=== PATIENT | male | born 1940 | race Caucasian/White ===

== ENCOUNTER 2020-06-06 13:30 | Outpatient (REF) | payer MEDICARE, SELFPAY ==
[2020-06-06 15:02] LABS: Anion Gap 12 (12-20); Blood Urea Nitrogen 22 mg/dL (9-16); Calcium 9.3 mg/dL (8.4-10.2); Carbon Dioxide 28 mmol/L (22-29); Chloride 105 mmol/L (96-108); Estimated Glomerular Filt Rate 57; Glucose Random 94 mg/dL (60-115); Potassium 4.4 mmol/l (3.3-5.1); Sodium 141 mmol/L (135-145)
== END 2020-06-06 13:31 | disposition home or self-care (01) ==
LOC: HO.LAB 13:30
PROVIDERS: PCP Internal Medicine; Visit Provider Internal Medicine
DX: I10 Essential (primary) hypertension (principal)
CPT/HCPCS: 80048

== ENCOUNTER 2020-10-01 12:24 | Outpatient (REF) | payer MEDICARE, SELFPAY ==
[2020-10-01 12:48] LABS: MANUAL DIFF FLAG NO
[2020-10-01 13:16] LABS: Basophils Percent Auto 0.5 % (0-2); Eosinophils Absolute Auto 0.3 X10*3/uL (0.0-0.4); Eosinophils Percent Auto 4.1 % (0-4); Hematocrit 46.3 % (42-52); Hemoglobin 15.3 g/dl (14.0-18.0); Imm Gran Abs Auto 0.04 X10*3/uL (0.00-0.03); Imm Gran Pct Auto 0.5 % (0.0-0.4); Lymphocytes Absolute Auto 2.4 X10*3/uL (1.2-4.9); Lymphocytes Percent Auto 29.9 % (20-40); Mean Corpuscular Hemoglobin 30.2 pg (27.0-33.0); Mean Corpuscular Volume 91.3 fL (80-98); Mean Platelet Volume 9.4 fL (9.4-12.4); Monocytes Absolute Auto 0.8 X10*3/uL (0.1-1.2); Monocytes Percent Auto 10.1 % (2-11); Neutrophils Absolute Auto 4.5 X10*3/uL (2.0-8.3); Neutrophils Percent Auto 54.9 % (45-73); Platelet Count 276 X10*3/uL (160-400); Red Blood Count 5.07 X10*6/uL (4.60-5.80); Red Cell Distribution Width 13.2 % (11.0-16.0); White Blood Count 8.1 X10*3/uL (4.8-10.8)
[2020-10-01 13:18] LABS: Alanine Aminotransferase 23 U/L (0-40); Albumin Level 4.5 g/dL (3.5-5.0); Alkaline Phosphatase 76 U/L (39-117); Anion Gap 12 (12-20); Aspartate Amino Transferase 21 U/L (5-37); Bilirubin Total 0.7 mg/dL (0.0-1.0); Blood Urea Nitrogen 18 mg/dL (9-16); Calcium 9.2 mg/dL (8.4-10.2); Carbon Dioxide 29 mmol/L (22-29); Chloride 103 mmol/L (96-108); Cholesterol 169 mg/dL; Estimated Glomerular Filt Rate > 60; Glucose Fasting 104 mg/dL (60-99); HDL Cholesterol 46 mg/dL; LDL Cholesterol Calculated 105 mg/dl; Potassium 4.4 mmol/L (3.3-5.1); Sodium 140 mmol/L (135-145); Total Protein 7.2 g/dL (6.5-8.0); Triglycerides 92 mg/dL
== END 2020-10-01 12:25 | disposition home or self-care (01) ==
LOC: HO.LAB 12:24
PROVIDERS: PCP Internal Medicine; Visit Provider Internal Medicine
DX: I12.9 Hypertensive chronic kidney disease with stage 1 through stage 4 chronic kidney disease, or unspecified chronic kidney disease (principal); N18.9 Chronic kidney disease, unspecified; E78.00 Pure hypercholesterolemia, unspecified
CPT/HCPCS: 36415; 80053; 80061; 85025

== ENCOUNTER 2021-03-31 14:51 | Outpatient (REF) | payer MEDICARE, SELFPAY ==
[2021-03-31 15:59] LABS: Basophils Percent Auto 0.5 % (0-2); Eosinophils Absolute Auto 0.2 X10*3/uL (0.0-0.4); Eosinophils Percent Auto 2.7 % (0-4); Hematocrit 44.8 % (42-52); Hemoglobin 14.8 g/dl (14.0-18.0); Imm Gran Abs Auto 0.03 X10*3/uL (0.00-0.03); Imm Gran Pct Auto 0.4 % (0.0-0.4); Lymphocytes Absolute Auto 2.1 X10*3/uL (1.2-4.9); Lymphocytes Percent Auto 25.2 % (20-40); MANUAL DIFF FLAG NO; Mean Corpuscular Hemoglobin 29.7 pg (27.0-33.0); Mean Platelet Volume 9.5 fL (9.4-12.4); Monocytes Absolute Auto 0.9 X10*3/uL (0.1-1.2); Neutrophils Absolute Auto 5.2 X10*3/uL (2.0-8.3); Neutrophils Percent Auto 61.2 % (45-73); Platelet Count 320 X10*3/uL (160-400); Red Blood Count 4.98 X10*6/uL (4.60-5.80); Red Cell Distribution Width 12.5 % (11.0-16.0); White Blood Count 8.5 X10*3/uL (4.8-10.8)
[2021-03-31 16:12] LABS: Appearance Urine CLEAR; Color Urine YELLOW; Glucose Urine UA NEG (NEG); Leukocyte Esterase Urine NEG (NEG); Nitrite Urine NEG (NEG); Specific Gravity - Urine 1.015 (1.005-1.025); Urine Blood NEG (NEG); Urine Ketones NEG (NEG); Urine Protein TRACE MG/DL (NEG-TRACE)
[2021-03-31 16:22] LABS: Alanine Aminotransferase 27 U/L (0-40); Albumin Level 4.4 g/dL (3.5-5.0); Alkaline Phosphatase 84 U/L (39-117); Anion Gap 15 (12-20); Aspartate Amino Transferase 24 U/L (5-37); Bilirubin Total 0.5 mg/dL (0.0-1.0); Blood Urea Nitrogen 17 mg/dL (9-16); Calcium 9.8 mg/dL (8.4-10.2); Carbon Dioxide 27 mmol/L (22-29); Chloride 104 mmol/L (96-108); Cholesterol 162 mg/dL; Estimated Glomerular Filt Rate > 60; Glucose Random 105 mg/dL (60-115); HDL Cholesterol 45 mg/dL; LDL Cholesterol Calculated 103 mg/dl; Potassium 4.6 mmol/L (3.3-5.1); Sodium 141 mmol/L (135-145); Total Protein 7.2 g/dL (6.5-8.0); Triglycerides 73 mg/dL
[2021-03-31 16:46] LABS: Prostate Specific Antigen 1.77 ng/mL (<0.05-4.0)
== END 2021-03-31 14:52 | disposition home or self-care (01) ==
LOC: HO.LAB 14:51
PROVIDERS: PCP Internal Medicine; Visit Provider Internal Medicine
DX: Z00.00 Encounter for general adult medical examination without abnormal findings (principal); Z12.5 Encounter for screening for malignant neoplasm of prostate; E78.00 Pure hypercholesterolemia, unspecified; N40.0 Benign prostatic hyperplasia without lower urinary tract symptoms; Z86.010 Personal history of colon polyps
CPT/HCPCS: 36415; 80053; 80061; 81003; 84153; 85025

== ENCOUNTER 2021-09-26 14:05 | Outpatient (REF) | payer MEDICARE, SELFPAY ==
[2021-09-26 14:20] LABS: MANUAL DIFF FLAG NO
[2021-09-26 15:01] LABS: Basophils Percent Auto 0.4 % (0-2); Eosinophils Absolute Auto 0.2 X10*3/uL (0.0-0.4); Eosinophils Percent Auto 2.1 % (0-4); Hematocrit 46.5 % (42.0-52.0); Hemoglobin 15.5 g/dl (14.0-18.0); Imm Gran Abs Auto 0.03 X10*3/uL (0.00-0.03); Imm Gran Pct Auto 0.3 % (0.0-0.4); Lymphocytes Absolute Auto 2.4 X10*3/uL (1.2-4.9); Lymphocytes Percent Auto 26.3 % (20-40); Mean Corpuscular HGB Conc 33.3 g/dl (31.0-36.0); Mean Corpuscular Hemoglobin 29.8 pg (27.0-33.0); Mean Corpuscular Volume 89.4 fL (80.0-98.0); Mean Platelet Volume 9.9 fL (9.4-12.4); Monocytes Absolute Auto 0.9 X10*3/uL (0.1-1.2); Monocytes Percent Auto 9.4 % (2-11); Neutrophils Absolute Auto 5.6 x10*3/uL (2.0-8.3); Neutrophils Percent Auto 61.5 % (45-73); Platelet Count 287 X10*3/uL (160-400); White Blood Count 9.1 X10*3/uL (4.8-10.8)
[2021-09-26 15:07] LABS: Appearance Urine CLEAR; Color Urine YELLOW; Glucose Urine UA NEG (NEG); Leukocyte Esterase Urine NEG (NEG); Nitrite Urine NEG (NEG); PH 6.5 (5.0-8.0); Urine Blood NEG (NEG); Urine Ketones NEG (NEG); Urine Protein NEG (NEG-TRACE)
[2021-09-26 15:21] LABS: Alanine Aminotransferase 24 U/L (0-40); Albumin Level 4.4 g/dL (3.5-5.0); Alkaline Phosphatase 78 U/L (39-117); Anion Gap 13 (12-20); Aspartate Amino Transferase 22 U/L (5-37); Bilirubin Total 0.8 mg/dL (0.0-1.0); Blood Urea Nitrogen 25 mg/dL (9-16); Calcium 9.7 mg/dL (8.4-10.2); Carbon Dioxide 26 mmol/L (22-29); Chloride 106 mmol/L (96-108); Cholesterol 169 mg/dL; Estimated Glomerular Filt Rate 59; Glucose Fasting 109 mg/dL (60-99); HDL Cholesterol 43 mg/dL; LDL Cholesterol Calculated 110 mg/dl; Potassium 4.2 mmol/L (3.3-5.1); Sodium 141 mmol/L (135-145); Total Protein 7.2 g/dL (6.5-8.0); Triglycerides 80 mg/dL
[2021-09-26 15:41] LABS: Prostate Specific Antigen 2.14 ng/mL (<0.05-4.0)
== END 2021-09-26 14:06 | disposition home or self-care (01) ==
LOC: HO.LAB 14:05
PROVIDERS: PCP Internal Medicine; Visit Provider Internal Medicine
DX: I10 Essential (primary) hypertension (principal); E78.00 Pure hypercholesterolemia, unspecified; N40.0 Benign prostatic hyperplasia without lower urinary tract symptoms; Z12.5 Encounter for screening for malignant neoplasm of prostate
CPT/HCPCS: 36415; 80053; 80061; 81003; 84153; 85025

== ENCOUNTER → 2021-11-17 08:00 | Outpatient (REF) | payer MEDICARE, SELFPAY ==
--- NOTE | 2021-11-17 08:09 | CA_ITS ---
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 The calculated ejection fraction is 68% by biplane method. - There is moderate septal asymmetric hypertrophy. - Moderately increased right ventricular cavity size. - There is mild calcification of the aortic valve. - There is mild anterior mitral leaflet thickening. Findings Left Ventricle Normal left ventricular cavity size. The left ventricular systolic function is normal. The calculated ejection fraction is 68% by biplane method. There is no evidence of regional wall motion abnormalities. Diastolic function is normal for age. There is moderate septal asymmetric hypertrophy. Right Ventricle Moderately increased right ventricular cavity size. There is normal right ventricular systolic function. Atria Both atria are normal in size. Aortic Valve There is mild calcification of the aortic valve. There is no aortic valve stenosis. There is no aortic valve regurgitation. Mitral Valve There is mild anterior mitral leaflet thickening. There is trace mitral valve regurgitation. There is no mitral valve stenosis. Pulmonic Valve The pulmonic valve is likely normal. Tricuspid Valve Normal tricuspid valve structure. There is no tricuspid valve regurgitation. The pulmonary artery systolic pressure is normal. Great Vessels The asc aorta is normal in size. Venous The inferior vena cava is normal in size and collapses greater than 50% with inspiration. Pericardium/Pleural There is no evidence of pericardial effusion. Prior Study Comparison No prior study available for comparison. Measurements 2D Linear Measurements IVSd: 1.29 0.6-0.9/0.6-1.0 cm LVIDd: 5.03 3.9-5.3/4.2-5.9 cm LVIDd Index: 2.38 2.4-3.2/2.2-3.1 cm/m2 LVIDs: 3.07 2.0-3.6 cm LVPWd: 0.90 0.7-1.1 cm LA Diam: 4.10 2.7-3.8/3.0-4.0 cm LAIDs Index: 1.94 1.5-2.3 cm/m2 LV Mass: 259.07 67-162/88-224 g LV Mass Index: 122.78 43-95/49-115 g/m2 LVOT Diam: 2.60 3.0+(-)1.3 cm 2D Systolic Function EF 4C: 74.20 >55% EF 2C: 54.30 >55% EF BiP: 67.50 >55% Mitral Valve MV Pk E: 0.60 MV PK A: 0.63 MV Decel Time: 322.00 E/A: 1.00 E'Lateral: 8.41 E'Medial: 5.43 E/E' Med: 11.10 E/E' Lat: 7.10 PHT: 94.00 MVA PHT: 2.34 Decel [place]: 1.87 Aortic Valve AoV Pk Santhosh: 1.16 AoV Mn Santhosh: 0.77 AoV VTI: 0.22 AoV Pk Grad: 5.00 Aov Mn Grad: 3.00 BAKARI Cont.VTI: 4.25 LVOT LVOT Pk Santhosh: 0.98 LVOT Mn Santhosh: 0.62 LVOT VTI: 0.17 LVOT Pk Grad: 4.00 LVOT Mn Grad: 2.00 LVOT Diam: 2.60 LVOT Area: 5.31 Diastolic Function MV Pk E: 0.60 MV Pk A: 0.63 E/A: 1.00 E'Medial: 5.43 E/E' Med: 11.10 E' Laterial: 8.41 E/E' Lat: 7.10 Right Ventricle TAPSE (mm): 18.80 TVS' Santhosh: 15.90 Tricuspid Valve TR Pk Santhosh: 2.46 TR Pk Grad: 24.00 RA Press: 3.00 Great Vessels Aorta Sinus of Valsalva: 3.26 2.0-3.5 cm Ao Asc: 3.30 2.1-3.4 cm Pulmonary Valve PV Pk Santhosh: 1.34 Peak PV Grad: 7.00 Updated in Other Vendor System with Status of Final Alphonse Driver MD electronically signed on 11/17/2021 12:09:52 PM with status of Final
== END ==
LOC: HO.CARD 08:00
PROVIDERS: PCP Internal Medicine; Visit Provider Internal Medicine
DX: I49.3 Ventricular premature depolarization (principal)
CPT/HCPCS: 93306

== ENCOUNTER 2022-01-16 11:27 | Outpatient (REF) | payer MEDICARE, SELFPAY ==
[2022-01-16 12:41] LABS: Anion Gap 13 (12-20); Blood Urea Nitrogen 17 mg/dL (9-16); Calcium 9.3 mg/dL (8.4-10.2); Carbon Dioxide 28 mmol/L (22-29); Chloride 102 mmol/L (96-108); Estimated Glomerular Filt Rate 54; Glucose Random 117 mg/dL (60-115); Sodium 138 mmol/L (135-145)
== END 2022-01-16 11:28 | disposition home or self-care (01) ==
LOC: HO.LAB 11:27
PROVIDERS: PCP Internal Medicine; Visit Provider Internal Medicine
DX: I10 Essential (primary) hypertension (principal); N18.9 Chronic kidney disease, unspecified
CPT/HCPCS: 36415; 80048

== ENCOUNTER 2022-03-11 14:12 | Outpatient (REF) | payer MEDICARE, SELFPAY ==
[2022-03-11 15:28] LABS: Anion Gap 15 (12-20); Blood Urea Nitrogen 16 mg/dL (9-16); Calcium 9.3 mg/dL (8.4-10.2); Carbon Dioxide 28 mmol/L (22-29); Chloride 102 mmol/L (96-108); Estimated Glomerular Filt Rate 55; Glucose Random 101 mg/dL (60-115); Potassium 4.4 mmol/L (3.3-5.1); Sodium 141 mmol/L (135-145)
[2022-03-11 15:39] LABS: Estimated Average Glucose 108 mg/dL; Hemoglobin A1c % 5.4 %
== END 2022-03-11 14:13 | disposition home or self-care (01) ==
LOC: HO.LAB 14:12
PROVIDERS: PCP Internal Medicine; Visit Provider Internal Medicine
DX: I12.9 Hypertensive chronic kidney disease with stage 1 through stage 4 chronic kidney disease, or unspecified chronic kidney disease (principal); N18.9 Chronic kidney disease, unspecified; R73.03 Prediabetes
CPT/HCPCS: 36415; 80048; 83036

== ENCOUNTER → 2022-04-07 11:28 | Outpatient (BNVA) | payer MEDICARE, SELFPAY | PROVIDERS: PCP Internal Medicine; Visit Provider Psychiatry & Neurology Psychiatry | DX: F32.4 Major depressive disorder, single episode, in partial remission (principal) | CPT/HCPCS: 90833; 99212 ==

== ENCOUNTER → 2022-07-14 13:06 | Outpatient (BNVA) | payer MEDICARE, SELFPAY | PROVIDERS: PCP Internal Medicine; Visit Provider Psychiatry & Neurology Psychiatry | DX: F41.0 Panic disorder [episodic paroxysmal anxiety] (principal); F41.1 Generalized anxiety disorder; F32.4 Major depressive disorder, single episode, in partial remission | CPT/HCPCS: 99212 ==

== ENCOUNTER 2022-09-09 12:04 | Outpatient (REF) | payer MEDICARE, SELFPAY ==
[2022-09-09 12:34] LABS: MANUAL DIFF FLAG NO
[2022-09-09 14:10] LABS: Basophils Percent Auto 0.5 % (0-2); Eosinophils Absolute Auto 0.2 X10*3/uL (0.0-0.4); Eosinophils Percent Auto 2.8 % (0-4); Hematocrit 45.1 % (42.0-52.0); Hemoglobin 15.2 g/dl (14.0-18.0); Imm Gran Abs Auto 0.03 X10*3/uL (0.00-0.03); Imm Gran Pct Auto 0.4 % (0.0-0.4); Lymphocytes Percent Auto 25.8 % (20-40); Mean Corpuscular HGB Conc 33.7 g/dl (31.0-36.0); Mean Corpuscular Hemoglobin 29.7 pg (27.0-33.0); Mean Corpuscular Volume 88.3 fL (80.0-98.0); Mean Platelet Volume 9.7 fL (9.4-12.4); Monocytes Absolute Auto 0.8 X10*3/uL (0.1-1.2); Monocytes Percent Auto 9.9 % (2-11); Neutrophils Absolute Auto 4.8 x10*3/uL (2.0-8.3); Neutrophils Percent Auto 60.6 % (45-73); Platelet Count 299 X10*3/uL (160-400); Red Blood Count 5.11 X10*6/uL (4.60-5.80); Red Cell Distribution Width 12.7 % (11.0-16.0); White Blood Count 7.9 X10*3/uL (4.8-10.8)
[2022-09-09 14:13] LABS: Appearance Urine Cloudy; Color Urine Yellow; Glucose Urine UA Negative (Negative); Leukocyte Esterase Urine Negative (Negative); Nitrite Urine Negative (Negative); PH 7.5 (5.0-9.0); Urine Blood Negative (Negative); Urine Ketones Negative (Negative); Urine Protein Negative (Neg-Trace)
[2022-09-09 14:45] LABS: Alanine Aminotransferase 17 U/L (0-40); Albumin Level 4.1 g/dL (3.5-5.0); Alkaline Phosphatase 75 U/L (39-117); Anion Gap 14 (12-20); Aspartate Amino Transferase 19 U/L (5-37); Bilirubin Total 0.7 mg/dL (0.0-1.0); Blood Urea Nitrogen 17 mg/dL (9-16); Calcium 9.2 mg/dL (8.4-10.2); Carbon Dioxide 28 mmol/L (22-29); Chloride 106 mmol/L (96-108); Cholesterol 162 mg/dL; Estimated Glomerular Filt Rate > 60; Glucose Fasting 95 mg/dL (60-99); HDL Cholesterol 40 mg/dL; LDL Cholesterol Calculated 109 mg/dl; Potassium 4.5 mmol/L (3.3-5.1); Sodium 143 mmol/L (135-145); Total Protein 6.7 g/dL (6.5-8.0); Triglycerides 69 mg/dL
[2022-09-09 15:02] LABS: Prostate Specific Antigen 1.67 ng/mL (<0.05-4.0)
== END 2022-09-09 12:05 | disposition home or self-care (01) ==
LOC: HO.LAB 12:04
PROVIDERS: PCP Internal Medicine; Visit Provider Internal Medicine
DX: I10 Essential (primary) hypertension (principal); E78.00 Pure hypercholesterolemia, unspecified; N40.0 Benign prostatic hyperplasia without lower urinary tract symptoms; Z12.5 Encounter for screening for malignant neoplasm of prostate
CPT/HCPCS: 36415; 80053; 80061; 81003; 84153; 85025

== ENCOUNTER → 2022-10-13 12:59 | Outpatient (BNVA) | payer MEDICARE, SELFPAY | PROVIDERS: PCP Internal Medicine; Visit Provider Psychiatry & Neurology Psychiatry | DX: F41.1 Generalized anxiety disorder (principal); F41.0 Panic disorder [episodic paroxysmal anxiety] | CPT/HCPCS: 90833; 99212 ==

== ENCOUNTER 2023-02-09 13:55 | Outpatient (AMB) | payer MEDICARE, SELFPAY ==
--- NOTE | 2023-02-09 13:34 | A.OFFPSYCH_ITS ---
Intake Intake Visit Reasons: Depression Medication List - Last Reconciled 02/09/23 by Shalom Sotelo MD aspirin (Adult Aspirin Regimen) 81 mg PO DAILY atorvastatin 10 mg PO DAILY clonazepam 0.5 mg PO BID PRN 30 days lisinopril 5 mg PO DAILY mirtazapine 30 mg PO BEDTIME HPI- Psychiatric Chief Complaint: Depression HPI Narrative: Pt seen in f/u mood has been ok grandson will be going to [employer] medically stable some anxiety in the am tends to be a worrier does feel overwhelmed at times has been on low dose klonapin mirtazapine with generally good effect. He tends to feel quite responsible for his family some of whom have significant addiction issues but generally things are improving. The patient can get somewhat exhausted taking his grandson to school and back and also be dealing with practices . Id in general however he can feel a sense of peace care on relax able to get sleep able to enjoy things. PHQ-9 unremarkable . States no new medical concerns Past Psychiatric History: Patient has a history of panic disorder and depression was on citalopram in the past originally was taking 3 mg a day of clonazepam for panic disorder and agoraphobia he did see Dr. Bailey many years ago in [place] he was also on Wellbutrin in the past chronic worries re his son cuong Mental Status Exam Mental Status Exam Narrative: Mental Status Exam Narrative: Appearance casually dressed Behavior: Cooperative psychomotor: Within normal limits Speech: Clear Thought proccess goal directed logical Thought content: generally feeling good about things Mood: some anxiety Affect: Full affect appropriate SI:denies HI:denies VH/AH:none Delusions:none Insight/judgment:good Memory/cog: intact Assessment and Plan Assessment & Plan (1) Generalized anxiety disorder: Status: Acute Code(s): F41.1 - Generalized anxiety disorder (2) Panic disorder [episodic paroxysmal anxiety]: Status: Acute Code(s): F41.0 - Panic disorder [episodic paroxysmal anxiety] (3) Major depression in partial remission: Status: Acute Code(s): F32.4 - Major depressive disorder, single episode, in partial remission Plan pt has generally been stable has been under stress worried re family mood somewhat anxious no new mwdical concerns Needs help in setting some boundaries family members some of whom are dealing with addiction patient tends to feel hyper spots pill 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 He feels between a rock and hard place at times trying to balance issues related to family safety versus enabling Medications: Refilled mirtazapine 30 mg PO BEDTIME 30 tabs 2RF Counseling and coordination of Care Pt. Self Management counseling: Mindfulness and Sleep hygiene Details-Self Mgmt counseling: issues related to children and sub abuse issues of spiritually for support Medication management counseling: Effectiveness Diagnosis and Prognosis Counseling: Impact of diagnosis on life functions and Adequacy of current interventions Details: I spent [36] minutes reviewing the record, seeing the patient and documenting in the medical record. Counseling provided to the patient/caregiver as outlined below. Addressed patient/caregiver concerns regarding current medication regime including effective adherence. Addressed patient/caregiver concerns regarding diagnosis and prognosis including accuracy of diagnosis, prognosis over time, impact of diagnosis. Addressed patient/caregiver concerns regarding impact of recent stressors. 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 Patient is Ep[employer] Substance History: na Trauma History: na Coding Level of Care Code Est Pt Level 3 (69025) Therapy 30m w/E&M (74633) Diagnoses Generalized anxiety disorder F41.1 Panic disorder [episodic paroxysmal anxiety] F41.0 Major depression in partial remission F32.4
== END 2023-02-09 14:14 | disposition home or self-care (01) ==
LOC: HO.HOP 13:55
PROVIDERS: PCP Internal Medicine; Visit Provider Psychiatry & Neurology Psychiatry
DX: F41.1 Generalized anxiety disorder (principal); F41.0 Panic disorder [episodic paroxysmal anxiety]; F32.4 Major depressive disorder, single episode, in partial remission
CPT/HCPCS: 90833; 99213

== ENCOUNTER → 2023-02-09 13:55 | Outpatient (BNVA) | payer MEDICARE, SELFPAY | PROVIDERS: PCP Internal Medicine; Visit Provider Psychiatry & Neurology Psychiatry | DX: F41.1 Generalized anxiety disorder (principal); F41.0 Panic disorder [episodic paroxysmal anxiety]; F32.4 Major depressive disorder, single episode, in partial remission | CPT/HCPCS: 90833; 99212 ==

== ENCOUNTER 2023-05-18 11:52 | Outpatient (AMB) | payer MEDICARE, SELFPAY ==
--- NOTE | 2023-05-18 12:28 | MHC.OFFVISPS ---
Intake Intake Visit Reasons: depression Medication List - Last Reconciled 05/20/23 by Shalom Sotelo MD aspirin (Adult Aspirin Regimen) 81 mg PO DAILY atorvastatin 10 mg PO DAILY clonazepam 0.5 mg PO BID PRN 30 days doxepin 3 - 6 mg (1 - 2 x 3 mg) PO BEDTIME PRN lisinopril 5 mg PO DAILY mirtazapine 30 mg PO BEDTIME HPI- Psychiatric Chief Complaint: depression HPI Narrative: Patient has been having a lot of concerns regarding his son managing substance abuse. 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 With seems more anxious preoccupied has difficulty falling asleep The patient's grandson has moved back in with his mother the patient feels good about this generally less pressuredc Past Psychiatric History: Patient has a history of panic disorder and depression was on citalopram in the past originally was taking 3 mg a day of clonazepam for panic disorder and agoraphobia he did see Dr. Leonard-mckenna many years ago in [place] he was also on Wellbutrin in the past chronic worries re his son grandson Mental Status Exam Mental Status Exam Narrative: Mental Status Exam Narrative: Appearance casually dressed Behavior: Cooperative psychomotor: Within normal limits Speech: Clear Thought proccess goal directed logical Thought content: generally feeling good about things Mood: some anxiety Affect: Full affect appropriate SI:denies HI:denies VH/AH:none Delusions:none Insight/judgment:good Memory/cog: intact Assessment and Plan Assessment & Plan (1) Generalized anxiety disorder: Status: Acute Code(s): F41.1 - Generalized anxiety disorder (2) Panic disorder [episodic paroxysmal anxiety]: Status: Acute Code(s): F41.0 - Panic disorder [episodic paroxysmal anxiety] (3) Major depression in partial remission: Status: Acute Code(s): F32.4 - Major depressive disorder, single episode, in partial remission Plan chronic stress and anxiety with the landlord/management lower mirtazapine 7.5 mg hs may be to stim at 15 mg try doxepin 3 mg hs prn patient tends to obsess about his family Medications: New doxepin 3 - 6 mg (1 - 2 x 3 mg) PO BEDTIME PRN 60 tabs 1RF sleep doxepin 3 mg PO BEDTIME PRN 30 tabs 1RF sleep Orders: Orders ECG 12 lead EKG 05/18/23 I10 - Essential (primary) hypertension Counseling and coordination of Care Details-Self Mgmt counseling: Issues related chronic stress anxiety issues related to insomnia reviewed sleep hygiene habits again doxepin 3 mg risks benefits alternatives reviewed patient call if problematic continue mirtazapine low-dose clonazepam Details: I spent [] minutes reviewing the record, seeing the patient and documenting in the medical record. Counseling provided to the patient/caregiver as outlined below. Addressed patient/caregiver concerns regarding current medication regime including effective adherence. Addressed patient/caregiver concerns regarding diagnosis and prognosis including accuracy of diagnosis, prognosis over time, impact of diagnosis. Addressed patient/caregiver concerns regarding impact of recent stressors. 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 Patient is [place] Substance History: na Trauma History: na Coding Level of Care Code Est Pt Level 3 (07419) Therapy 30m w/E&M (02865) Diagnoses Generalized anxiety disorder F41.1 Panic disorder [episodic paroxysmal anxiety] F41.0 Major depression in partial remission F32.4
== END 2023-05-18 12:45 | disposition home or self-care (01) ==
LOC: HO.HOP 11:52
PROVIDERS: PCP Internal Medicine; Visit Provider Psychiatry & Neurology Psychiatry
DX: F41.1 Generalized anxiety disorder (principal); F41.0 Panic disorder [episodic paroxysmal anxiety]; F32.4 Major depressive disorder, single episode, in partial remission
CPT/HCPCS: 90833; 99213

== ENCOUNTER → 2023-05-18 11:52 | Outpatient (REF) | payer MEDICARE, SELFPAY ==
--- NOTE | 2023-05-18 12:53 | ECG_ITS ---
Test Reason : HTN Blood Pressure : / mmHG Vent. Rate : 083 BPM Atrial Rate : 083 BPM P-R Int : 144 ms QRS Dur : 092 ms QT Int : 370 ms P-R-T Axes : 065 -14 030 degrees QTc Int : 434 ms Normal sinus rhythm with occasional Premature atrial complexes Nonspecific T wave abnormality Inferior leads Abnormal ECG When compared with ECG of 21-SEP-2005 16:15, Nonspecific T wave abnormality is new Premature atrial complexes are new Referred By: Shalom Sotelo Electronically Signed By:KENDAL MULLIGAN MD
== END ==
LOC: HO.CARD 11:52
PROVIDERS: PCP Internal Medicine; Visit Provider Psychiatry & Neurology Psychiatry
DX: I10 Essential (primary) hypertension (principal); F41.1 Generalized anxiety disorder; F41.0 Panic disorder [episodic paroxysmal anxiety]; F32.4 Major depressive disorder, single episode, in partial remission
CPT/HCPCS: 90833; 93005; 99212

== ENCOUNTER 2023-08-19 15:34 | Outpatient (AMB) | payer MEDICARE, SELFPAY ==
--- NOTE | 2023-08-19 14:37 | A.OFFPSYCH_ITS ---
Intake Intake Visit Reasons: depression HPI- Psychiatric Chief Complaint: depression HPI Narrative: Patient seen psychiatric follow-up. Patient's mood has generally been stable he is feeling better since his grandson moved out and they are less stressors on his time having no longer to shadow him a few times a day. He continues to provide a base for 2 of his children . Patient continues on mirtazapine doxepin generally good effect may get up 1 time a night mood generally stable anxiety generally control. Dealing with chronic issues related to addiction in the family Past Psychiatric History: Patient has a history of panic disorder and depression was on citalopram in the past originally was taking 3 mg a day of clonazepam for panic disorder and agoraphobia he did see Dr. Bailey many years ago in [place] he was also on Wellbutrin in the past chronic worries re his son grandson Mental Status Exam Mental Status Exam Narrative: Mental Status Exam Narrative: Appearance casually dressed Behavior: Cooperative psychomotor: Within normal limits Speech: Clear Thought proccess goal directed logical Thought content: generally okay about how things are going chronic concerns regarding family members Mood: some anxiety Affect: Full affect appropriate SI:denies HI:denies VH/AH:none Delusions:none Insight/judgment:good Memory/cog: intact Assessment and Plan Assessment & Plan (1) Generalized anxiety disorder: Status: Acute Code(s): F41.1 - Generalized anxiety disorder (2) Panic disorder [episodic paroxysmal anxiety]: Status: Acute Code(s): F41.0 - Panic disorder [episodic paroxysmal anxiety] Plan pt generally stable feels well with doxepin hs for sleep remeron helpful have tried to taper down clonazepam further over time Patient does have relaxation skills Medications: Refilled mirtazapine 30 mg PO BEDTIME 30 tabs 3RF clonazepam 0.5 mg PO BID PRN 60 tabs 2RF anxiety 30 days doxepin 3 mg PO BEDTIME PRN 30 tabs 2RF sleep Counseling and coordination of Care Medication management counseling: Effectiveness and Side effects Diagnosis and Prognosis Counseling: Adequacy of current interventions Details: I spent [30] minutes reviewing the record, seeing the patient and documenting in the medical record. Counseling provided to the patient/caregiver as outlined below. Addressed patient/caregiver concerns regarding current medication regime including effective adherence. Addressed patient/caregiver concerns regarding diagnosis and prognosis including accuracy of diagnosis, prognosis over time, impact of diagnosis. Addressed patient/caregiver concerns regarding impact of recent stressors. 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 Patient is Moravian Substance History: na Trauma History: na Coding Level of Care Code Est Pt Level 4 (07283) Diagnoses Generalized anxiety disorder F41.1 Panic disorder [episodic paroxysmal anxiety] F41.0
== END 2023-08-19 15:36 | disposition home or self-care (01) ==
LOC: HO.HOP 15:34
PROVIDERS: PCP Internal Medicine; Visit Provider Psychiatry & Neurology Psychiatry
DX: F41.1 Generalized anxiety disorder (principal); F41.0 Panic disorder [episodic paroxysmal anxiety]
CPT/HCPCS: 99214

== ENCOUNTER → 2023-08-19 15:34 | Outpatient (BNVA) | payer MEDICARE, SELFPAY | PROVIDERS: PCP Internal Medicine; Visit Provider Psychiatry & Neurology Psychiatry | DX: F41.1 Generalized anxiety disorder (principal); F41.0 Panic disorder [episodic paroxysmal anxiety] | CPT/HCPCS: 99212 ==

== ENCOUNTER 2023-12-09 09:04 | Outpatient (REF) | payer MEDICARE, SELFPAY ==
[2023-12-09 09:33] LABS: MANUAL DIFF FLAG NO
[2023-12-09 10:18] LABS: Basophils Percent Auto 0.4 % (0-2); Eosinophils Absolute Auto 0.2 X10*3/uL (0.0-0.4); Eosinophils Percent Auto 2.4 % (0-4); Hematocrit 45.8 % (42.0-52.0); Hemoglobin 15.5 g/dl (14.0-18.0); Imm Gran Abs Auto 0.03 X10*3/uL (0.00-0.03); Imm Gran Pct Auto 0.4 % (0.0-0.4); Lymphocytes Absolute Auto 1.9 X10*3/uL (1.2-4.9); Lymphocytes Percent Auto 24.4 % (20-40); Mean Corpuscular HGB Conc 33.8 g/dl (31.0-36.0); Mean Corpuscular Hemoglobin 30.5 pg (27.0-33.0); Mean Platelet Volume 9.7 fL (9.4-12.4); Monocytes Absolute Auto 0.8 X10*3/uL (0.1-1.2); Monocytes Percent Auto 9.9 % (2-11); Neutrophils Percent Auto 62.5 % (45-73); Platelet Count 269 X10*3/uL (160-400); Red Blood Count 5.09 X10*6/uL (4.60-5.80); Red Cell Distribution Width 12.9 % (11.0-16.0); White Blood Count 7.9 X10*3/uL (4.8-10.8)
[2023-12-09 10:58] LABS: Alanine Aminotransferase 20 U/L (0-40); Albumin Level 4.3 g/dL (3.5-5.0); Alkaline Phosphatase 78 U/L (39-117); Anion Gap 15 (12-20); Aspartate Amino Transferase 20 U/L (5-37); Bilirubin Total 0.3 mg/dL (0.0-1.0); Blood Urea Nitrogen 18 mg/dL (9-16); Calcium 9.4 mg/dL (8.4-10.2); Carbon Dioxide 28 mmol/L (22-29); Chloride 104 mmol/L (96-108); Cholesterol 160 mg/dL (<200); Estimated Glomerular Filt Rate > 60; Glucose Fasting 119 mg/dL (60-99); HDL Cholesterol 45 mg/dL (>40); LDL Cholesterol Calculated 104 mg/dL (<100); Potassium 4.3 mmol/L (3.3-5.1); Sodium 143 mmol/L (135-145); Total Protein 7.1 g/dL (6.5-8.0); Triglycerides 59 mg/dL (<150)
[2023-12-09 11:04] LABS: Prostate Specific Antigen 1.75 ng/mL (<0.05-4.0)
== END 2023-12-09 09:05 | disposition home or self-care (01) ==
LOC: HO.LAB 09:04
PROVIDERS: PCP Internal Medicine; Visit Provider Internal Medicine
DX: I10 Essential (primary) hypertension (principal); E78.00 Pure hypercholesterolemia, unspecified; Z12.5 Encounter for screening for malignant neoplasm of prostate
CPT/HCPCS: 36415; 80053; 80061; 84153; 85025

== ENCOUNTER 2023-12-13 15:52 | Outpatient (AMB) | payer MEDICARE, SELFPAY ==
--- NOTE | 2023-12-13 16:13 | A.OFFPSYCH_ITS ---
Intake Intake Visit Reasons: depression Medication List - Last Reconciled 12/13/23 by Shalom Sotelo MD aspirin (Adult Aspirin Regimen) 81 mg PO DAILY atorvastatin 10 mg PO DAILY clonazepam 0.5 mg PO BID PRN 30 days doxepin 3 mg PO BEDTIME PRN lisinopril 5 mg PO DAILY mirtazapine 30 mg PO BEDTIME HPI- Psychiatric Chief Complaint: depression HPI Narrative: Pt seen in f/u mood has been somewhat anxious have urged pt to see therapist focused on sub issues he and his have difficult time setting limits on their son . Some degree of chronic anxiety and intermittent distress regarding family members who have substance abuse and appropriate level of contact and intervention. Patient has strongly advised to see a therapist regarding this issue despite his own therapy background indoor Al-Anon or naron meetings. Patient generally feels he has a good quality of life not overly depressed or anxious generally Past Psychiatric History: Patient has a history of panic disorder and depression was on citalopram in the past originally was taking 3 mg a day of clonazepam for panic disorder and agoraphobia he did see Dr. Bailey many years ago in [place] he was also on Wellbutrin in the past chronic worries re his son cuong Mental Status Exam Mental Status Exam Narrative: Mental Status Exam Narrative: Appearance casually dressed Behavior: Cooperative psychomotor: Within normal limits Speech: Clear Thought proccess goal directed logical Thought content: generally ok but overwhelmed with issues with son related to addiction Mood: some anxiety Affect: Full affect appropriate SI:denies HI:denies VH/AH:none Delusions:none Insight/judgment:good Memory/cog: intact Assessment and Plan Assessment & Plan (1) Generalized anxiety disorder: Status: Acute Code(s): F41.1 - Generalized anxiety disorder (2) Panic disorder [episodic paroxysmal anxiety]: Status: Acute Code(s): F41.0 - Panic disorder [episodic paroxysmal anxiety] (3) Major depression in partial remission: Status: Acute Code(s): F32.4 - Major depressive disorder, single episode, in partial remission (4) Family conflict: Status: Acute Code(s): Z63.8 - Other specified problems related to primary support group Plan pt has been doing ok generally has difficult time with son witrh addiction uses prayer has been resistant to recommendations for group or individual or couples counseling regarding this specific issue or others support groups which I have strongly urged Counseling and coordination of Care Pt. Self Management counseling: Other self-help group and Parenting skills Details-Self Mgmt counseling: Structural issues related to dealing with a son and grandchild with major addiction issues and setting boundaries Details-Med Mgmt counseling: Continue mirtazapine Klonopin has been lowered over time no evidence of abuse or tolerance no cognitive issues Details: I spent [38] minutes reviewing the record, seeing the patient and documenting in the medical record. Counseling provided to the patient/caregiver as outlined below. Addressed patient/caregiver concerns regarding current medication regime including effective adherence. Addressed patient/caregiver concerns regarding diagnosis and prognosis including accuracy of diagnosis, prognosis over time, impact of diagnosis. Addressed patient/caregiver concerns regarding impact of recent stressors. Doxepin low-dose for insomnia discussed role of mirtazapine for dysphoria and blocking panic attacks patient denies feeling overmedicated or dizziness knows to get up slowly at night PFSH Medical History (Updated 07/29/22 @ 13:52 by Shalom Sotelo MD) Generalized anxiety disorder Panic disorder [episodic paroxysmal anxiety] Hypertension Social History (Updated 04/07/22 @ 13:20 by Shalom Sotelo MD) Household Members: Spouse and Family Household Members Other:: Grandson Housing: Condominium Do you presently have visiting nurse or other home services: No Social History: The patient lives with his ex and grandson in 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 Patient is Oriental Orthodox Substance History: na Trauma History: na Coding Level of Care Code Est Pt Level 3 (20910) Therapy 30m w/E&M (12922) Diagnoses Generalized anxiety disorder F41.1 Panic disorder [episodic paroxysmal anxiety] F41.0 Major depression in partial remission F32.4 Family conflict Z63.8
== END 2023-12-13 16:42 | disposition home or self-care (01) ==
LOC: HO.HOP 15:52
PROVIDERS: PCP Internal Medicine; Visit Provider Psychiatry & Neurology Psychiatry
DX: F41.1 Generalized anxiety disorder (principal); F41.0 Panic disorder [episodic paroxysmal anxiety]; F32.4 Major depressive disorder, single episode, in partial remission; Z63.8 Other specified problems related to primary support group
CPT/HCPCS: 90833; 99213

== ENCOUNTER → 2023-12-13 15:52 | Outpatient (BNVA) | payer MEDICARE, SELFPAY | PROVIDERS: PCP Internal Medicine; Visit Provider Psychiatry & Neurology Psychiatry | DX: F41.1 Generalized anxiety disorder (principal); F41.0 Panic disorder [episodic paroxysmal anxiety]; F32.4 Major depressive disorder, single episode, in partial remission; Z63.8 Other specified problems related to primary support group | CPT/HCPCS: 99212 ==

== ENCOUNTER 2024-04-15 10:52 | Outpatient (REF) | payer MEDICARE, SELFPAY ==
[2024-04-15 11:21] LABS: Estimated Average Glucose 114 mg/dL; Hemoglobin A1C 144.9894 umol/L; Hemoglobin A1c % 5.6 % (<6.0); Total Hemoglobin (HGBA1C) 3903.0517 umol/L
[2024-04-15 11:46] LABS: Anion Gap 11 (12-20); Blood Urea Nitrogen 18 mg/dL (9-16); Calcium 9.9 mg/dL (8.4-10.2); Carbon Dioxide 30 mmol/L (22-29); Chloride 103 mmol/L (96-108); Estimated Glomerular Filt Rate 56; Glucose Random 111 mg/dL (60-115); Potassium 4.3 mmol/L (3.3-5.1); Sodium 140 mmol/L (135-145)
== END 2024-04-15 10:53 | disposition home or self-care (01) ==
LOC: HO.LAB 10:52
PROVIDERS: PCP Internal Medicine; Visit Provider Internal Medicine
DX: R73.09 Other abnormal glucose (principal); I10 Essential (primary) hypertension
CPT/HCPCS: 36415; 80048; 83036

== ENCOUNTER 2024-04-19 11:28 | Outpatient (AMB) | payer MEDICARE, SELFPAY ==
--- NOTE | 2024-04-19 13:15 | MHC.OFFVISPS ---
Intake Intake Visit Reasons: depression Medication List - Last Reconciled 04/19/24 by Shalom Sotelo MD aspirin (Adult Aspirin Regimen) 81 mg PO DAILY atorvastatin 10 mg PO DAILY clonazepam 0.5 mg PO BID PRN 30 days doxepin 3 mg PO BEDTIME PRN lisinopril 5 mg PO DAILY mirtazapine 30 mg PO BEDTIME HPI- Psychiatric Chief Complaint: depression HPI Narrative: Patient seen psychiatric follow-up. Patient's mood generally stable no new medical problems. He is able to enjoy things but tends to be preoccupied with his son and grandson at chronic use of narcotic/cocaine. Have recommended multiple times intervention with him and his to see a substance disorder family therapist or engagement with [facility]. Both he and his have been therapist but quite close to the situation. Patient has felt between a rock and a hard place for an extended period of time trying to provide a supportive based for his family yet they have not been able to manage any extended sobriety. He has tried to [place] [address] in the past. Past Psychiatric History: Patient has a history of panic disorder and depression was on citalopram in the past originally was taking 3 mg a day of clonazepam for panic disorder and agoraphobia he did see Dr. Bailey many years ago in [place] he was also on Wellbutrin in the past chronic worries re his son grandson Mental Status Exam Mental Status Exam Narrative: Mental Status Exam Narrative: Appearance casually dressed Behavior: Cooperative psychomotor: Within normal limits Speech: Clear Thought proccess goal directed logical Thought content: generally ok but overwhelmed with issues with son related to addiction ongoing Mood: some anxiety Affect: Full affect appropriate SI:denies HI:denies VH/AH:none Delusions:none Insight/judgment: Some impairment reasoning things had relationship to his family and substance use and limitations of what he can do Memory/cog: intact Assessment and Plan Assessment & Plan (1) Major depression in partial remission: Status: Acute Code(s): F32.4 - Major depressive disorder, single episode, in partial remission (2) Panic disorder [episodic paroxysmal anxiety]: Status: Acute Code(s): F41.0 - Panic disorder [episodic paroxysmal anxiety] (3) Generalized anxiety disorder: Status: Acute Code(s): F41.1 - Generalized anxiety disorder Plan Again recommend counseling either for the patient alone or couples for him in his who although live together and both are dealing with addiction issues in relationship to their grandson and son who comes goes throughout their lives and intermittently lives in the house otherwise patient has been stable on current regimen no evidence of abuse or tolerance cognitively intact Counseling and coordination of Care Pt. Self Management counseling: Other self-help group Details-Self Mgmt counseling: Ongoing issues related to chronic substance use with his son and grandson risk of not providing a sanctuary for their addiction versus dealing with the vagaries if they were to live on the street Medication management counseling: Effectiveness, Side effects and Dosing range Diagnosis and Prognosis Counseling: Adequacy of current interventions Details: I spent [38] minutes reviewing the record, seeing the patient and documenting in the medical record. Counseling provided to the patient/caregiver as outlined below. Addressed patient/caregiver concerns regarding current medication regime including effective adherence. Addressed patient/caregiver concerns regarding diagnosis and prognosis including accuracy of diagnosis, prognosis over time, impact of diagnosis. Addressed patient/caregiver concerns regarding impact of recent stressors. 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 Patient is Jehov[employer] Witness Substance History: na Trauma History: na Coding Level of Care Code Est Pt Level 3 (09496) Therapy 30m w/E&M (45784) Diagnoses Major depression in partial remission F32.4 Panic disorder [episodic paroxysmal anxiety] F41.0 Generalized anxiety disorder F41.1
== END 2024-04-19 13:30 | disposition home or self-care (01) ==
LOC: HO.HOP 11:28
PROVIDERS: PCP Internal Medicine; Visit Provider Psychiatry & Neurology Psychiatry
DX: F32.4 Major depressive disorder, single episode, in partial remission (principal); F41.0 Panic disorder [episodic paroxysmal anxiety]; F41.1 Generalized anxiety disorder
CPT/HCPCS: 90833; 99213

== ENCOUNTER → 2024-04-19 11:28 | Outpatient (BNVA) | payer MEDICARE, SELFPAY | PROVIDERS: PCP Internal Medicine; Visit Provider Psychiatry & Neurology Psychiatry | DX: F32.4 Major depressive disorder, single episode, in partial remission (principal); F41.0 Panic disorder [episodic paroxysmal anxiety]; F41.1 Generalized anxiety disorder; F14.90 Cocaine use, unspecified, uncomplicated | CPT/HCPCS: 99212 ==

== ENCOUNTER 2024-08-15 10:50 | Outpatient (AMB) | payer MEDICARE, SELFPAY ==
--- NOTE | 2024-08-15 13:40 | MHC.OFFVISPS ---
Intake Intake Visit Reasons: depression Medication List - Last Reconciled 08/15/24 by Shalom Sotelo MD aspirin (Adult Aspirin Regimen) 81 mg PO DAILY atorvastatin 10 mg PO DAILY clonazepam 0.5 mg PO BID PRN 30 days doxepin 3 mg PO BEDTIME PRN lisinopril 5 mg PO DAILY mirtazapine 30 mg PO BEDTIME HPI- Psychiatric Chief Complaint: depression HPI Narrative: Patient seen psychiatric follow-up. Patient's mood generally stable some times periods of discouragement in relation to his son and grandson who intermittently live with him and remain with substance abuse. He and his have a hard time setting limits. Mood tucker the patient generally has been good he is on mirtazapine clonazepam 0.5 b.i.d. down from 1 b.i.d. in the past no evidence of abuse or tolerance no cognitive issues. Patient history of panic and depression has generally been fairly stable Past Psychiatric History: Patient has a history of panic disorder and depression was on citalopram in the past originally was taking 3 mg a day of clonazepam for panic disorder and agoraphobia he did see Dr. Bailey many years ago in [place] he was also on Wellbutrin in the past chronic worries re his son grandradha Mental Status Exam Mental Status Exam Narrative: Mental Status Exam Narrative: Appearance casually dressed Behavior: Cooperative psychomotor: Within normal limits Speech: Clear Thought proccess goal directed logical Thought content: generally ok but overwhelmed with issues with son related to addiction ongoing Mood: some anxiety Affect: Full affect appropriate SI:denies HI:denies VH/AH:none Delusions:none Insight/judgment: Some impairment reasoning things had relationship to his family and substance use and limitations of what he can do ongoing Memory/cog: intact Assessment and Plan Assessment & Plan (1) Panic disorder [episodic paroxysmal anxiety]: Status: Acute Code(s): F41.0 - Panic disorder [episodic paroxysmal anxiety] (2) Generalized anxiety disorder: Status: Acute Code(s): F41.1 - Generalized anxiety disorder Plan Continue plan of care continue doxepin mirtazapine encourage he and his ex- to engage in couples treatment in relationship to managing their family substance abuse issues and constant interruptions in their life. Doxepin has been quite helpful for insomnia Medications: Refilled clonazepam 0.5 mg PO BID PRN 60 tabs 2RF anxiety 30 days doxepin 3 mg PO BEDTIME PRN 30 tabs 2RF sleep mirtazapine 30 mg PO BEDTIME 90 tabs 1RF Counseling and coordination of Care Details-Self Mgmt counseling: Extensive discussion related to substance abuse issues in the family Diagnosis and Prognosis Counseling: Problematic behaviors secondary to diagnosis and Adequacy of current interventions Details: I spent [39] minutes reviewing the record, seeing the patient and documenting in the medical record. Counseling provided to the patient/caregiver as outlined below. Addressed patient/caregiver concerns regarding current medication regime including effective adherence. Addressed patient/caregiver concerns regarding diagnosis and prognosis including accuracy of diagnosis, prognosis over time, impact of diagnosis. Addressed patient/caregiver concerns regarding impact of recent stressors. 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 Patient is Sikhism Substance History: na Trauma History: na Coding Level of Care Code Est Pt Level 3 (23204) Therapy 30m w/E&M (96949) Diagnoses Panic disorder [episodic paroxysmal anxiety] F41.0 Generalized anxiety disorder F41.1
== END 2024-08-15 11:34 | disposition home or self-care (01) ==
LOC: HO.HOP 10:50
PROVIDERS: PCP Internal Medicine; Visit Provider Psychiatry & Neurology Psychiatry
DX: F41.0 Panic disorder [episodic paroxysmal anxiety] (principal); F41.1 Generalized anxiety disorder
CPT/HCPCS: 90833; 99213

== ENCOUNTER → 2024-08-15 10:50 | Outpatient (BNVA) | payer MEDICARE, SELFPAY | PROVIDERS: PCP Internal Medicine; Visit Provider Psychiatry & Neurology Psychiatry | DX: F41.0 Panic disorder [episodic paroxysmal anxiety] (principal); F41.1 Generalized anxiety disorder | CPT/HCPCS: 99212 ==

== ENCOUNTER 2024-10-18 12:49 | Outpatient (AMB) | payer MEDICARE, SELFPAY ==
--- NOTE | 2024-10-18 13:03 | MHC.PC.OV ---
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 Accompanied by: Self / Same As Patient Allergies No Known Allergies Allergy (Verified 10/18/24 13:05) Tobacco use date assessed: 10/18/24 Fall risk assessment: No Falls in past year Last assessed Fall Risk: 10/18/24 Dental Screening Dental Screen Date: 10/18/24 Did you have a dental visit in the last 12 months?: Yes Did you have a dental problem in the last 6 months where you did not have access to dental care?: No PFSH Medical History Generalized anxiety disorder Panic disorder [episodic paroxysmal anxiety] Hypertension Surgical History History of colonoscopy (~03/09/14) Family History (Updated 10/18/24 @ 13:17 by Coco Millard CMA) Mother No problems noted. Father No problems noted. Social History Household Members: Spouse and Family Household Members Other:: Grandson Housing: Condominium Do you presently have visiting nurse or other home services: No Patient Tobacco Use Status: Former Tobacco user e-Cigarette/Vaping Use: Former Use service: No Current occupational status: retired Cognitive needs: No Hearing needs: No Vision needs: Yes (reading glasses) Questionnaire PHQ-9 Over the last 2 weeks, how often have you been bothered by any of the following problems? 1. Little interest or pleasure in doing things: not at all 2. Feeling down, depressed, or hopeless: not at all 3. Trouble falling or staying asleep, or sleeping too much: not at all 4. Feeling tired or having little energy: not at all 5. Poor appetite or overeating: not at all 6. Feeling bad about yourself - or that you are a failure or have let yourself or your family down: not at all 7. Trouble concentrating on things, such as reading the newspaper or watching television: not at all 8. Moving or speaking so slowly that other people could have noticed. Or the opposite - being so fidgety or restless that you have been moving around a lot more than usual: not at all 9. Thoughts that you would be better off or of hurting yourself in some way: not at all Total score: 0 Source: Developed by Drs. Jean Corona, Alfreda Espinoza, Waylon Ortega and colleagues, with an educational lilli from [employer]. Thrive Questionnaire Date Thrive assessed: 10/18/24 I am a: Patient Within the past 12 months, did the food you bought not last and you didn't have the money to get more?: Never true Within the past 12 months, did you worry whether your food would run out before you got money to buy more?: Never true Do you have trouble paying for medicines?: No Do you have trouble getting transportation to medical appointments?: No Do you have trouble paying your heating and electricity bill?: No Do you have trouble taking care of your child, family member or friend?: No Do you have trouble with day-to-day activities such as bathing, preparing meals, shopping, managing finances, etc.?: No Are you currently unemployed and looking for a job?: No Are you interested in more education?: No THRIVE Score: 0 AUDIT C Alcohol Use Questionnaire (AUDIT-C) 1. How often do you have a drink containing alcohol?: Never 3. How often do you have six or more drinks on one occasion?: Never Total Score: 0 MARCLEA-7 AMB Questionnaire MARCELA-7 Date MARCELA - 7 assessed: 10/18/24 Feeling nervous, anxious, or on edge: 0 = Not at all Not being able to stop or control worryin = Not at all Worrying too much about different things: 0 = Not at all Trouble relaxin = Not at all Being so restless that it is hard to sit still: 0 = Not at all Becoming easily annoyed or irritable: 0 = Not at all Feeling afraid as if something awful might happen: 0 = Not at all Total MARCELA-7 score (0-4 normal; 5-9 mild; 10-14 moderate; 15-21 severe): 0 Source: Developed by Drs. Jean Corona, Alfreda Espinoza, Waylon Ortega and colleagues, with an educational lilli from [employer]. Physical exam (Primary Care) Vital Signs: Last Vital Signs Temp 97.5 F 10/18/24 13:04 Pulse 93 10/18/24 13:04 BP 136/80 10/18/24 13:04 Pulse Ox 97 10/18/24 13:04 Oxygen Delivery Method Room Air 10/18/24 13:04 BMI result Body Mass Index 28.8 Tobacco/Smoking Status: Tobacco use Status Tobacco use date assessed 10/18/24 10/18/24 13:06 Patient Tobacco Use Status Former Tobacco user 10/18/24 13:17 e-Cigarette/Vaping Use Former Use 10/18/24 13:17 PHQ-9: PHQ-9 Score PHQ-9: Total score 0 10/18/24 13:17 Thrive Assessment: Date of Thrive Assessment Date Thrive assessed 10/18/24 10/18/24 13:06 Coding Level of Care Code New Pt Level 4 (82624) Complex EM visit Add On G2211 Diagnoses Major depression in partial remission F32.4 Hypertension I10 Hypercholesteremia E78.00 Assessment & Plan Assessment & Plan (1) Major depression in partial remission: Code(s): F32.4 - Major depressive disorder, single episode, in partial remission Category: Medical Plan: Condition is stable. Continue current medications (2) Hypertension: Code(s): I10 - Essential (primary) hypertension Category: Medical Plan: Condition is stable. Continue current meds (3) Hypercholesteremia: Code(s): E78.00 - Pure hypercholesterolemia, unspecified Category: Medical Plan: BW has been ordered. Will call with results of blood work. Plan History of Present Illness The patient is an 83-year-old male presenting with a wellness visit, reporting a singular concern of left knee pain. The knee pain is described as non-debilitating, and occurs primarily during dog walking, with some alleviation from a supportive device. The onset and duration were not specified, but there is no indication of severe pain or the need for surgical procedures at this time. Social History - Employment: Retired, previously worked as a psychotherapist for many years; currently engaged with [employer] for 14 years. - Activity Level: Walks his dog regularly. - Pet Ownership: Owns a 2-year-old Thalia Shaw dog. - Current Hobbies: Enjoys watching TV and laying in bed. Review of Systems - Musculoskeletal: Reports left knee pain. - General: Denies any other health concerns. Physical Exam General: Cooperative and healthy appearing Nutritional Appearance: Well nourished Orientation/consciousness: Patient oriented x3 Limitations: No limitations Head: Normal to inspection General: Appearance normal, both eyes and all related structures Neck: Normal visual inspection Chest: Normal palpation of entire chest wall Respiratory: No pain reported ormal respiratory effort Neurology: Patient oriented x3 Results Plan I addressed the primary concern of left knee pain by recommending the continued use of a supportive device, which the patient finds helpful. I also ordered routine blood work to monitor overall health. Given the patient's stable condition, a follow-up visit is planned in six months to reassess the management plan, unless earlier intervention is required. Routine medication refills were not needed at this time, and the patient was advised to handle future refills through the pharmacy. Patient was informed and verbally consented to the use of an ambient scribe for clinic note documentation during this visit. Discussion Notes I discussed with the patient the management of his left knee pain, which is primarily managed through the use of a supportive device. We talked about continuing this approach since it's currently effective for him. I also informed him about conducting routine blood work prior to our next appointment to ensure all health parameters are monitored adequately. We reviewed the importance of staying on top of prescription refills via the pharmacy. The patient was receptive to these plans and the follow-up scheduled in six months unless other issues arise. Patient Instructions - Continue using the supportive device for knee comfort while walking. - Plan to get routine blood work done ahead of the next appointment. - Contact the pharmacy directly for any future medication refills. - Schedule a follow-up visit in six months unless symptoms change. - Report any significant changes in symptoms or new health concerns. Orders: Orders Basic Metabolic Panel Today E78.00 - Pure hypercholesterolemia, unspecified, F32.4 - Major depressive disorder, single episode, in partial remission, I10 - Essential (primary) hypertension Liver Panel Today E78.00 - Pure hypercholesterolemia, unspecified, F32.4 - Major depressive disorder, single episode, in partial remission, I10 - Essential (primary) hypertension Thyroid Stimulating Hormone Today E78.00 - Pure hypercholesterolemia, unspecified, F32.4 - Major depressive disorder, single episode, in partial remission, I10 - Essential (primary) hypertension Complete Blood Count no Diff Today E78.00 - Pure hypercholesterolemia, unspecified, F32.4 - Major depressive disorder, single episode, in partial remission, I10 - Essential (primary) hypertension Lipid Panel Today E78.00 - Pure hypercholesterolemia, unspecified, F32.4 - Major depressive disorder, single episode, in partial remission, I10 - Essential (primary) hypertension UA and rflx microscopic Today E78.00 - Pure hypercholesterolemia, unspecified, F32.4 - Major depressive disorder, single episode, in partial remission, I10 - Essential (primary) hypertension
[2024-10-18 13:04] VITALS: BP 136/80; PULSE 93; TEMP 36.4; O2SAT 97; BMI 28.8
== END 2024-10-18 13:28 | disposition home or self-care (01) ==
LOC: HO.HMCHD 12:49
PROVIDERS: PCP Internal Medicine; Visit Provider Internal Medicine
DX: F32.4 Major depressive disorder, single episode, in partial remission (principal); I10 Essential (primary) hypertension; E78.00 Pure hypercholesterolemia, unspecified

== ENCOUNTER → 2024-10-18 12:49 | Outpatient (BNVA) | payer MEDICARE, SELFPAY | PROVIDERS: PCP Internal Medicine; Visit Provider Internal Medicine | DX: F32.4 Major depressive disorder, single episode, in partial remission (principal); I10 Essential (primary) hypertension; E78.00 Pure hypercholesterolemia, unspecified; M25.562 Pain in left knee | CPT/HCPCS: 96127; 99202 ==

== ENCOUNTER 2024-12-13 12:37 | Outpatient (AMB) | payer MEDICARE, SELFPAY ==
--- NOTE | 2024-12-13 13:19 | MHC.OFFVISPS ---
Intake Intake Visit Reasons: depression Allergies No Known Allergies Allergy (Verified 10/18/24 13:05) HPI- Psychiatric Chief Complaint: depression HPI Narrative: Pt seen has been doing ok son had been arrested he is on probation living with pts sister son is 57 yo not working [employer] term crack user Pt has had ongoing concerns regarding his son . Pt has chronic anxiety regarding his son has not followed thru with suggestions of counseling with his had recommended brenna other support grps . Besides this issue patient generally stable no evidence of abuse her tolerance of clonazepam he is aware of long-term has mirtazapine continues to be helpful. No severe panic or anxiety/depressive symptoms. Generally managing Past Psychiatric History: Patient has a history of panic disorder and depression was on citalopram in the past originally was taking 3 mg a day of clonazepam for panic disorder and agoraphobia he did see Dr. Bailey many years ago in [place] he was also on Wellbutrin in the past chronic worries re his son grandson Mental Status Exam Mental Status Exam Narrative: Mental Status Exam Narrative: Appearance casually dressed Behavior: Cooperative psychomotor: Within normal limits Speech: Clear Thought proccess goal directed logical Thought content: generally ok but overwhelmed with issues with son related to addiction ongoing Mood: some anxiety Affect: Full affect appropriate SI:denies HI:denies VH/AH:none Delusions:none Insight/judgment: Some impairment reasoning things had relationship to his family and substance use and limitations of what he can do ongoing this cont to be true Memory/cog: intact Assessment and Plan Assessment & Plan (1) Major depression in partial remission: Status: Acute Code(s): F32.4 - Major depressive disorder, single episode, in partial remission (2) Generalized anxiety disorder: Status: Acute Code(s): F41.1 - Generalized anxiety disorder Plan Patient generally stable on current regimen have strongly urged patient to try and get more perspective on his son chronic addiction with crack cocaine 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 Otherwise patient stable no new medical problems continue plan of care Medications: Refilled mirtazapine 30 mg PO BEDTIME 90 tabs 1RF Counseling and coordination of Care Details-Self Mgmt counseling: She is related to chronic addiction in the family issues related to boundaries and dealing with multiple addiction issues in different members Diagnosis and Prognosis Counseling: Adequacy of current interventions Details: I spent [39] minutes reviewing the record, seeing the patient and documenting in the medical record. Counseling provided to the patient/caregiver as outlined below. Addressed patient/caregiver concerns regarding current medication regime including effective adherence. Addressed patient/caregiver concerns regarding diagnosis and prognosis including accuracy of diagnosis, prognosis over time, impact of diagnosis. Addressed patient/caregiver concerns regarding impact of recent stressors. [facility] Medical History Generalized anxiety disorder Panic disorder [episodic paroxysmal anxiety] Hypertension Surgical History History of colonoscopy (~03/09/14) Family History (Updated 10/18/24 @ 13:17 by Coco Millard MA) Mother No problems noted. Father No problems noted. 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 Patient is [employer] Substance History: na Trauma History: na Coding Level of Care Code Est Pt Level 3 (08703) Therapy 30m w/E&M (93364) Diagnoses Major depression in partial remission F32.4 Generalized anxiety disorder F41.1
== END 2024-12-13 13:47 | disposition home or self-care (01) ==
LOC: HO.HOP 12:37
PROVIDERS: PCP Internal Medicine; Visit Provider Psychiatry & Neurology Psychiatry
DX: F32.4 Major depressive disorder, single episode, in partial remission (principal); F41.1 Generalized anxiety disorder
CPT/HCPCS: 90833; 99213

== ENCOUNTER → 2024-12-13 12:37 | Outpatient (BNVA) | payer MEDICARE, SELFPAY | PROVIDERS: PCP Internal Medicine; Visit Provider Psychiatry & Neurology Psychiatry | DX: F32.4 Major depressive disorder, single episode, in partial remission (principal); F41.1 Generalized anxiety disorder | CPT/HCPCS: 99212 ==

== ENCOUNTER 2025-04-09 13:41 | Outpatient (REF) | payer MEDICARE, SELFPAY ==
[2025-04-09 14:51] LABS: Hematocrit 44.9 % (42.0-52.0); Hemoglobin 15.5 g/dl (14.0-18.0); Mean Corpuscular HGB Conc 34.5 g/dl (31.0-36.0); Mean Corpuscular Hemoglobin 30.2 pg (27.0-33.0); Mean Corpuscular Volume 87.5 fL (80.0-98.0); NRBC Abs Auto 0.000 X10*3/uL (0.0-0.012); NRBC Pct Auto 0.0 /100WBC (0.0-0.2); Platelet Count 303 X10*3/uL (160-400); Red Blood Count 5.13 X10*6/uL (4.60-5.80); White Blood Count 9.6 X10*3/uL (4.8-10.8)
[2025-04-09 14:53] LABS: Appearance Urine Clear; Glucose Urine UA Negative (Negative); PH >= 9.0 (5.0-9.0); Specific Gravity - Urine 1.020 (1.005-1.025)
[2025-04-09 15:30] LABS: Alanine Aminotransferase 31 U/L (0-40); Albumin Level 4.5 g/dL (3.5-5.0); Alkaline Phosphatase 93 U/L (39-117); Anion Gap 13 (12-20); Aspartate Amino Transferase 36 U/L (5-37); Blood Urea Nitrogen 21 mg/dL (9-16); Calcium 9.6 mg/dL (8.4-10.2); Carbon Dioxide 27 mmol/L (22-29); Chloride 104 mmol/L (96-108); Cholesterol 161 mg/dL (<200); Estimated Glomerular Filt Rate 56; HDL Cholesterol 46 mg/dL (>40); Potassium 4.1 mmol/L (3.3-5.1); Sodium 140 mmol/L (135-145); Total Protein 7.4 g/dL (6.5-8.0); Triglycerides 86 mg/dL (<150)
[2025-04-09 15:47] LABS: Thyroid Stimulating Hormone 1.60 uIU/mL (0.32-4.0)
--- OUTSIDE RECORDS SUMMARY | 2025-04-09 16:08 | XMS_ITS | Patient Health Record ---
Author Organization [facility] Address [address] [place] [address] Care Team Providers Care Driver'S License Reviewing Officer Name Role Phone Sarah (RETIRED) Cruz SANCHES Primary Care Provide r Unavailable Oh Ceballos Jr Unavailable [phone] Reason For Referral No Information Medications Medication SIG (Take, Route, Frequency, Duration) Notes Start Date End Date Status clonazePAM 1 MG TAKE 1/2-1 TABLET BY MOUTH TWICE A DAY NEEDED Oral for 30 Active Atorvastatin Calcium 10 MG 1 tablet Oral ly Once a day Active buPROPion HCl ER (SR) 100 MG TAKE 1 TABLET BY MOUTH AT BEDTIME Oral for 30 Active Aspir-81 81 MG 1 tablet Orally Once a day Active Viagra 25 MG 1 tablet as needed O rally Once a day Active Ibuprofen 400 MG 1 tablet Orally Thre e times a day Active Fish Oil 1000 MG 1 capsule Orally Onc e a day Active Vitamin D 2000 UNIT Orally Active Saw [place] 450 MG Orally Active Multi Vitamin/Minerals Orally Active Colyte with Flavor Packs 240 GM As directed Orally Over the specified time. for 1 day(s) 11/16/2013 Active Problems Problem Type SNOMED Code ICD Code Onset Dates Problem Status W/U Status Risk Notes Problem 225108232 Colon cancer screening (V76.51) Active confirmed Problem 70430492 Ileitis (558.9) Active confirmed Plan Of Treatment Future Test Test Name Order Date COLONOSCOPY 11/16/2013 Insurance Providers Payer Name Payer Address Payer Phone Subscriber Number Group Number Insured Name Patient Relationship to Insured Coverage Start Date Coverage End Date MEDICARE OF [place] [address] [place] [id number] MIGNON LOZANO Self - patient is the insured [employer] ATTN CLAIMS [address] [place] [address] [id number] BLAKE MIGNON Self - patient is the insured Medical (General) History Medical History History ICD Code anxiety colon polyps Denies [place],DM,CVA,Lung disease,renal dise ase Surgical History Surgery Date(Month/Year) hernia repair
== END 2025-04-09 13:42 | disposition home or self-care (01) ==
LOC: HO.LAB 13:41
PROVIDERS: PCP Physician Assistant Medical; Visit Provider Internal Medicine
DX: F32.4 Major depressive disorder, single episode, in partial remission (principal); I10 Essential (primary) hypertension; E78.00 Pure hypercholesterolemia, unspecified
CPT/HCPCS: 36415; 80048; 80061; 80076; 81003; 84443; 85027

== ENCOUNTER 2025-04-18 12:42 | Outpatient (REF) | payer MEDICARE, SELFPAY ==
--- NOTE | ~2025-04-18 | XR_ITS ---
EXAMINATION: XR KNEE 1-2 VIEWS LEFT HISTORY: M25.562 - Pain in left knee COMPARISON: There are no prior studies available for comparison. FINDINGS: AP and lateral views of the left knee are submitted. Osseous mineralization is normal. There is no fracture or dislocation. There is severe osteoarthritis of the medial compartment with joint space narrowing and osteophyte formation. There is moderate osteoarthritis of the patellofemoral compartment. There are vascular calcifications. There is no joint effusion. XR/XR knee LT 2V IMPRESSION: Osteoarthritis of the left knee as described. Electronically signed by: Jean Del Real MD 04/18/2025 02:09 PM EDT
== END 2025-04-18 12:43 | disposition home or self-care (01) ==
LOC: HO.XRAY 12:42
PROVIDERS: PCP Physician Assistant Medical; Visit Provider Physician Assistant Medical
DX: M25.562 Pain in left knee (principal); E78.00 Pure hypercholesterolemia, unspecified; F32.4 Major depressive disorder, single episode, in partial remission; F41.1 Generalized anxiety disorder; I12.9 Hypertensive chronic kidney disease with stage 1 through stage 4 chronic kidney disease, or unspecified chronic kidney disease; N18.9 Chronic kidney disease, unspecified; Z79.899 Other long term (current) drug therapy
CPT/HCPCS: 73560

== ENCOUNTER → 2025-04-18 13:50 | Outpatient (BNV) | payer MEDICARE, SELFPAY | PROVIDERS: PCP Physician Assistant Medical; Visit Provider Radiology Diagnostic Radiology | DX: M17.12 Unilateral primary osteoarthritis, left knee (principal) | CPT/HCPCS: 73560 ==

== ENCOUNTER 2025-04-24 10:42 | Outpatient (AMB) | payer MEDICARE, SELFPAY ==
--- NOTE | 2025-04-24 11:11 | MHC.OFFVISPS ---
Intake Intake Visit Reasons: depression Allergies No Known Allergies Allergy (Verified 04/18/25 09:23) HPI- Psychiatric Chief Complaint: depression HPI Narrative: Pt is an 84 yo male hx of recurrent anxiety tends to worry regarding his family. His retired from [employer] 1 wk ago. Grandson was sec [employer] 90 day section then go into tx program . Son on probation gets tested weekly. Mood has been somewhat more fatigued preoccupied since knee has developed arthritis. He has not been able to hike into nature like he normally does which was a sanctuary for him Still worried about grandson who has been committed on a section 35. Patient's mood generally stable does have a new PCP had been Dr. Smith Past Psychiatric History: Patient has a history of panic disorder and depression was on citalopram in the past originally was taking 3 mg a day of clonazepam for panic disorder and agoraphobia he did see Dr. Leonard-if many years ago in [place] he was also on Wellbutrin in the past chronic worries re his son grandradha Mental Status Exam Mental Status Exam Narrative: Mental Status Exam Narrative: Appearance casually dressed Behavior: Cooperative psychomotor: Within normal limits Speech: Clear Thought proccess goal directed logical Thought content: Future oriented focused on retiring feeling more hopeful regarding his son who is on probation and has monitor drug screens and has remains sober and has been helpful living with the patient when sober Mood: some anxiety Affect: Full affect appropriate SI:denies HI:denies VH/AH:none Delusions:none Insight/judgment: Understands he needs to put some boundaries between himself and dealing with multiple family members with substance abuse. The patient understands has a therapist that he should be able to keep better boundaries but he has been more focused on his family. He has had more preoccupation and anxiety since he has not been able to go out into the walking as he usually does because of knee pain Memory/cog: intact Assessment and Plan Assessment & Plan (1) Major depression in partial remission: Status: Acute Code(s): F32.4 - Major depressive disorder, single episode, in partial remission (2) Panic disorder [episodic paroxysmal anxiety]: Status: Acute Code(s): F41.0 - Panic disorder [episodic paroxysmal anxiety] (3) Generalized anxiety disorder: Status: Acute Code(s): F41.1 - Generalized anxiety disorder Plan Patient generally doing okay combination of low-dose clonazepam mirtazapine doxepin low-dose. Mood stable sleep generally good some awakening to urinate. No evidence of abuse or tolerance misuse of benzodiazepines no alcohol use or other substance use Medications: Refilled clonazepam 0.5 mg PO BID PRN 60 tabs 2RF anxiety 30 days mirtazapine 30 mg PO BEDTIME 90 tabs 1RF Counseling and coordination of Care Details-Self Mgmt counseling: Issues related to family management of anxiety and dealing with family members substance abuse have again recommended support groups for family addiction Medication management counseling: Effectiveness, Side effects and Dosing range Diagnosis and Prognosis Counseling: Adequacy of current interventions Details: I spent [39] minutes reviewing the record, seeing the patient and documenting in the medical record. Counseling provided to the patient/caregiver as outlined below. Addressed patient/caregiver concerns regarding current medication regime including effective adherence. Addressed patient/caregiver concerns regarding diagnosis and prognosis including accuracy of diagnosis, prognosis over time, impact of diagnosis. Addressed patient/caregiver concerns regarding impact of recent stressors. [facility] Medical History (Updated 04/18/25 @ 13:30 by BYRON Mast) Left knee pain Generalized anxiety disorder Panic disorder [episodic paroxysmal anxiety] Hypertension Surgical History History of colonoscopy (~03/09/14) Family History (Updated 04/18/25 @ 13:03 by Coco Millard MA) Mother No problems noted. Father No problems noted. Son Substance abuse Social History Household Members: Spouse and Family Household Members Other:: Grandson Housing: Condominium Do you presently have visiting nurse or other home services: No Patient Tobacco Use Status: Former Tobacco user e-Cigarette/Vaping Use: Former Use service: No Current occupational status: retired Cognitive needs: No Hearing needs: No Vision needs: Yes (reading glasses) Social History: The patient lives with his ex and grandson in 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 Patient is Scientologist Substance History: na Trauma History: na Coding Level of Care Code Est Pt Level 3 (42918) Therapy 30m w/E&M (90362) Diagnoses Major depression in partial remission F32.4 Panic disorder [episodic paroxysmal anxiety] F41.0 Generalized anxiety disorder F41.1
--- OUTSIDE RECORDS SUMMARY | 2025-04-24 12:53 | XMS_ITS | Patient Health Record ---
Author Organization [facility] Address [address] [place] [address] Care Team Providers Care Second Baller Name Role Phone Sarah (RETIRED) Cruz SANCHES Primary Care Provide r Oh Cazares Jr Unavailable Reason For Referral No Information Medications Medication SIG (Take, Route, Frequency, Duration) Notes Start Date End Date Status clonazePAM 1 MG TAKE 1/2-1 TABLET BY MOUTH TWICE A DAY NEEDED Oral; Duration: 30 Active Atorvastatin Calcium 10 MG 1 tablet Oral ly Once a day Active buPROPion HCl ER (SR) 100 MG TAKE 1 TABLET BY MOUTH AT BEDTIME Oral; Duration: 30 Active Aspir-81 81 MG 1 tablet Orally Once a day Active Viagra 25 MG 1 tablet as needed O rally Once a day Active Ibuprofen 400 MG 1 tablet Orally Thre e times a day Active Fish Oil 1000 MG 1 capsule Orally Onc e a day Active Vitamin D 2000 UNIT Orally Active Saw [place] 450 MG Orally Active Multi Vitamin/Minerals Orally Active Colyte with Flavor Packs 240 GM As directed Orally Over the specified time.; Duration: 1 day(s) 11/16/2013 Active Problems Problem Type SNOMED Code ICD Code Onset Dates Problem Status W/U Status Risk Notes Problem Colon cancer screening (467683200) Colon cancer screening (V76.51) Active confirmed Problem Ileitis (54968737) Ileitis (558.9) Active confirmed Plan Of Treatment Future Test Test Name Order Date COLONOSCOPY 11/16/2013 Insurance Providers Payer Name Payer Address Payer Phone Subscriber Number Group Number Insured Name Patient Relationship to Insured Coverage Start Date Coverage End Date MEDICARE OF [place] [address] [place] [id number] MIGNON LOZANO Self - patient is the insured [employer] ATTN CLAIMS [address] [place] [address] [phone] [id number] MIGNON LOZANO Self - patient is the insured Medical (General) History Medical History History ICD Code anxiety colon polyps Denies [place],DM,CVA,Lung disease,renal dise ase Surgical History Surgery Date(Month/Year) hernia repair
== END 2025-04-24 11:58 | disposition home or self-care (01) ==
LOC: HO.HOP 10:42
PROVIDERS: PCP Physician Assistant Medical; Visit Provider Psychiatry & Neurology Psychiatry
DX: F32.4 Major depressive disorder, single episode, in partial remission (principal); F41.0 Panic disorder [episodic paroxysmal anxiety]; F41.1 Generalized anxiety disorder
CPT/HCPCS: 90833; 99213

== ENCOUNTER → 2025-04-24 10:42 | Outpatient (BNVA) | payer MEDICARE, SELFPAY | PROVIDERS: PCP Physician Assistant Medical; Visit Provider Psychiatry & Neurology Psychiatry | DX: F32.4 Major depressive disorder, single episode, in partial remission (principal); F41.0 Panic disorder [episodic paroxysmal anxiety]; F41.1 Generalized anxiety disorder; Z79.899 Other long term (current) drug therapy; Z87.891 Personal history of nicotine dependence | CPT/HCPCS: 99212 ==

== ENCOUNTER 2025-05-03 12:37 | Outpatient (AMB) | payer MEDICARE, SELFPAY ==
--- NOTE | 2025-05-03 12:46 | MHC.OFFVIS ---
Vital Signs 05/03/25 12:47 Height 5 ft 9 in Weight 197 lb BMI 29.1 Intake Visit Reasons: New Pt - Left Knee OA Intake Note: Juan is an 84 year old male who presents today as a New Patient with complaints of Left Knee Pain. Patient reports that he is not having pain in the left knee, but for the last 6 months he has had weakness of the left knee. He is unable to use the left leg to step up stairs as it feels as though it is going to give out. No pertinent hx Allergies No Known Allergies Allergy (Verified 04/18/25 09:23) HPI HPI New Pt - Left Knee OA: Details: Juan is an 84 year old male who presents today as a New Patient with complaints of Left Knee Pain. Patient reports that he is not having pain in the left knee, but for the last 6 months he has had weakness of the left knee. He is unable to use the left leg to step up stairs as it feels as though it is going to give out. He manages this by using a railing when he goes up and downstairs and again he denies pain. He states he is extremely active. He walks his dog a mi a day and has no complaints of knee pain other than difficulty with stairs and really only on the left. No pertinent hx PFSH Medical History (Updated 05/03/25 @ 13:56 by Cam Hernández MD) Left knee pain Generalized anxiety disorder Panic disorder [episodic paroxysmal anxiety] Hypertension Surgical History History of colonoscopy (~03/09/14) Family History (Updated 04/18/25 @ 13:03 by Coco Millard MA) Mother No problems noted. Father No problems noted. Son Substance abuse Social History Household Members: Spouse and Family Household Members Other:: Grandson Housing: Condominium Do you presently have visiting nurse or other home services: No Patient Tobacco Use Status: Former Tobacco user e-Cigarette/Vaping Use: Former Use service: No Current occupational status: retired Cognitive needs: No Hearing needs: No Vision needs: Yes (reading glasses) Physical Exam Exam Exam: 5-125 degrees of motion left knee. Varus malalignment but no pain with ambulation and no tenderness to palpation medial compartment. Has some difficulty on dynamic step up requires some manual assistance Vital Signs: BMI result Body Mass Index 29.1 Results Reviewed Results Reviewed: I personally reviewed relevant radiographs. Severe left knee medial compartment osteoarthritis Assessment & Plan Assessment & Plan (1) Osteoarthritis of left knee: Code(s): M17.12 - Unilateral primary osteoarthritis, left knee Category: Medical Plan: This is an 84-year-old gentleman with radiographic evidence of osteoarthritis of the left knee. He has minimal pain however. In fact he has no pain. He is completely functional he only has some weakness with ascending stairs. I discussed this with him. I would recommend that he remain active and avoid in a any intervention at this point. Certainly surgery is not reasonable but I suppose physical therapy coupled with viscosupplementation could be helpful if he develops pain but he is so minimally affected by his arthritis the I would not recommend any intervention. I discussed with the him. He agrees. He will contact me if pain develops Coding Level of Care Code New Pt Level 3 (22018) Diagnoses Osteoarthritis of left knee M17.12
[2025-05-03 12:47] VITALS: BMI 29.1
--- OUTSIDE RECORDS SUMMARY | 2025-05-03 15:29 | XMS_ITS | Patient Health Record ---
Author Organization [facility] Address [address] [place] [address] Care Team Providers Care Surgical Garment Fitter Name Role Phone Sarah (RETIRED) Cruz SANCHES Primary Care Provide r Oh Cazares Jr Unavailable [phone] Reason For Referral No Information Medications Medication [...] Vitamin D 2000 UNIT Orally Active Saw [place] 450 MG Orally Active Multi Vitamin/Minerals Orally Active Colyte with Flavor Packs 240 GM As directed Orally Over the specified time.; Duration: 1 day(s) 11/16/2013 Active Problems Problem Type SNOMED Code ICD Code Onset Dates Problem Status W/U Status Risk Notes Problem Colon cancer screening (576776450) Colon cancer screening (V76.51) Active confirmed Problem Ileitis (37267595) Ileitis (558.9) Active confirmed Plan Of Treatment Future Test Test Name Order Date COLONOSCOPY 11/16/2013 Insurance Providers Payer Name Payer Address Payer Phone Subscriber Number Group Number Insured Name Patient Relationship to Insured Coverage Start Date Coverage End Date MEDICARE OF [place] [address]RE [address] [place] [id number] MIGNON LOZANO Self - patient is the insured [employer] ATTN CLAIMS [address] [place] [address] [phone] [id number] MIGNON LOZANO Self - patient is the insured Medical (General) History Medical History History ICD Code anxiety colon polyps Denies [place],DM,CVA,Lung disease,renal dise ase Surgical History Surgery Date(Month/Year) hernia repair
== END 2025-05-03 13:19 | disposition home or self-care (01) ==
LOC: HO.HOS 12:38
PROVIDERS: PCP Physician Assistant Medical; Visit Provider Orthopaedic Surgery
DX: M17.12 Unilateral primary osteoarthritis, left knee (principal)
CPT/HCPCS: 99203

== ENCOUNTER → 2025-05-03 12:37 | Outpatient (BNVA) | payer MEDICARE, SELFPAY | PROVIDERS: PCP Physician Assistant Medical; Visit Provider Orthopaedic Surgery | DX: M25.562 Pain in left knee (principal); M17.12 Unilateral primary osteoarthritis, left knee | CPT/HCPCS: 99202 ==

== ENCOUNTER 2025-06-21 13:46 | Outpatient (AMB) | payer MEDICARE, SELFPAY ==
--- NOTE | 2025-06-21 13:58 | HO.NEPHOV ---
Vital Signs 06/21/25 14:04 Height 5 ft 10 in Weight 196 lb BMI 28.1 BP 150/90 H Blood Pressure Location Lt brachial Position Sitting Pulse 101 H Pulse Source Pulse Oximeter Pulse Oximetry (%) 97 Oxygen Delivery Method Room Air Intake Visit Reasons: INP Chronic kidney disease, Hypertension Database Administrator Required: No Accompanied by: Self / Same As Patient Allergies No Known Allergies Allergy (Verified 06/21/25 14:09) Medication List - Last Reconciled 06/21/25 by Oneil Mejia MD amlodipine 2.5 mg PO DAILY ascorbic acid (vitamin C) 1,000 mg PO DAILY atorvastatin 10 mg PO DAILY 90 days calcium amino acid chelate 1,200 mg PO DAILY cholecalciferol (vitamin D3) 25 mcg PO DAILY clonazepam 0.5 mg PO BID PRN 30 days doxepin 3 mg PO BEDTIME PRN lactobacillus combination no.4 (Probiotic) 3,000 mmu cells PO DAILY lisinopril 20 mg PO BEDTIME magnesium 500 mg PO DAILY mecobalamin (vitamin B12) 500 mcg PO DAILY mirtazapine 30 mg PO BEDTIME multivitamin 1 tab PO DAILY omega 6-rom-ztt-fish oil 60-90-500 mg (Fish Oil) 1 cap PO DAILY zinc sulfate (Orazinc) 50 mg PO DAILY HPI Comments Details: The patient is an 84 year old male presenting for evaluation of hypertension and chronic kidney disease. He has a history of high blood pressure for several years, which was previously managed with lisinopril 10 mg. His primary care physician increased his lisinopril to 20 mg in May and added amlodipine 2.5 mg on June 04 after he was unable to have a tooth extraction due to high blood pressure readings at the dentist. Past blood pressure readings were noted to be well-controlled, with a reading of 138/84 in April and 136/80 in October. The patient also has a history of chronic kidney disease, which a previous physician was monitoring. He has experienced chronic diarrhea for years, with 3-5 bowel movements in the morning and another in the afternoon. His diet is notable for occasional consumption of [place] food, which is high in salt. He denies adding salt to his food, denies tobacco use for 40 years, and denies alcohol use for 35-40 years. He reports no changes in weight, no urination problems, and a good appetite. Serum creatinine has been staying around 1.2 mg/dL for the last few years. Last reading was in April 2025. Lisinopril was increased in May h/o Chronic Diarrhea - 2-4 bowel movements a day. Semi-solid. Not watery. No cramps. [facility] Medical History (Updated 05/17/25 @ 10:32 by BYRON Mast) Chronic kidney disease Left knee pain Generalized anxiety disorder Panic disorder [episodic paroxysmal anxiety] Hypertension Surgical History History of colonoscopy (~03/09/14) Family History Mother No problems noted. Father No problems noted. Son Substance abuse Social History Household Members: Spouse and Family Household Members Other:: Grandson [facility] Do you presently have visiting nurse or other home services: No Patient Tobacco Use Status: Former Tobacco user e-Cigarette/Vaping Use: Former Use service: No Current occupational status: retired Cognitive needs: No Hearing needs: No Vision needs: Yes (reading glasses) Review of Systems Const Denies fever(s) and Denies weight loss Card Denies chest pain Resp Denies cough and Denies hemoptysis GI Denies abdominal pain, Denies diarrhea and Denies nausea Musc Denies back pain Neuro Denies focal weakness Physical Exam Exam Exam: Physical Exam General: Awake. Comfortable. HENT: Neck supple. Mucosa moist. Pulmonary: Lungs aeration equal. No rales. Cardiology: Heart S1-S2 heard. No gallop. Abdomen: Soft. Non tender. Bowel sounds normal. Reports diarrhea, with bowel movements 3-5 times a day. Neurologic: No involuntary movements. No myoclonus. Extremities: No edema. No rash. Vital Signs: Last Vital Signs Pulse 101 H 06/21/25 14:04 BP 150/90 H 06/21/25 14:04 Pulse Ox 97 06/21/25 14:04 Oxygen Delivery Method Room Air 06/21/25 14:04 BMI result Body Mass Index 28.1 Results Reviewed Nephrology Results: Hgb, (14.0-18.0) 15.5 g/dl 04/09/25 WBC, (4.8-10.8) 9.6 X10*3/uL 04/09/25 Plt Count, (160-400) 303 X10*3/uL 04/09/25 Sodium, (135-145) 140 mmol/L 04/09/25 Potassium, (3.3-5.1) 4.1 mmol/L 04/09/25 Chloride, (96-108) 104 mmol/L 04/09/25 Carbon Dioxide, (22-29) 27 mmol/L 04/09/25 BUN, (9-16) 21 mg/dL H 04/09/25 Creatinine, (0.5-1.4) 1.23 mg/dL 04/09/25 Calcium, (8.4-10.2) 9.6 mg/dL 04/09/25 Urine Protein, (Neg-Trace) Trace mg/dL 04/09/25 Assessment & Plan Assessment & Plan (1) Hypertension: Comment: BP today [id number] manual Code(s): I10 - Essential (primary) hypertension Category: Medical (2) Chronic kidney disease: Code(s): N18.9 - Chronic kidney disease, unspecified Category: Medical Plan Plan 1. Hypertension - The patient's blood pressure was elevated upon arrival but normalized during the visit, suggesting possible white coat hypertension. - No additional antihypertensive medications will be added at this time. - A 24-hour ambulatory blood pressure monitoring will be initiated to assess the patient's blood pressure outside of the clinical setting. - If the 24-hour monitoring reveals consistently elevated blood pressure, further management will be considered. - The results of the monitoring can be shared with his dentist. 2. Chronic Kidney Disease - The patient's slightly decreased kidney function is considered age-appropriate and not a cause for concern at this time. However lisinopril was increased in May 2025. We will obtain renal panel again to follow serum creatinine and potassium levels. Orders: Orders Total Protein Urine Random Today I10 - Essential (primary) hypertension, N18.9 - Chronic kidney disease, unspecified AMB 24 HR B/P Monitor PLACEMENT Today I10 - Essential (primary) hypertension Basic Metabolic Panel Today I10 - Essential (primary) hypertension, N18.9 - Chronic kidney disease, unspecified Creatinine Urine Today I10 - Essential (primary) hypertension, N18.9 - Chronic kidney disease, unspecified UA and rflx microscopic Today I10 - Essential (primary) hypertension, N18.9 - Chronic kidney disease, unspecified Coding Level of Care Code New Pt Level 4 (38566) Diagnoses Hypertension I10 Chronic kidney disease N18.9
[2025-06-21 14:04] VITALS: BP 150/90; PULSE 101; O2SAT 97; BMI 28.1
--- OUTSIDE RECORDS SUMMARY | 2025-06-21 18:01 | XMS_ITS | Patient Health Record ---
Author Organization [facility] Address [address] [place] [address] Care Team Providers Care Vice President Of Product Marketing Name Role Phone Sarah (RETIRED) Cruz SANCHES Primary Care Provide r Oh Cazares Jr Unavailable Reason For Referral No Information Medications Medication SIG (Take, Route, Frequency, Duration) Notes Start Date End Date Status clonazePAM 1 MG Tablet TAKE 1/2-1 TABLET BY MOUTH TWICE A DAY NEEDED Oral; Duration: 30 Active Atorvastatin Calcium 10 MG Tablet 1 tablet Orally Once a day Active buPROPion HCl ER (SR) 100 MG Tablet Extended Release 12 Hour TAKE 1 TABLET BY MOUTH AT BEDTIME Oral; Duration: 30 Active Aspir-81 81 MG Tablet Delayed Release 1 tablet Orally Once a day Active Viagra 25 MG Tablet 1 tablet as needed Orally Once a day Active Ibuprofen 400 MG Tablet 1 tablet Orally Three times a day Active Fish Oil 1000 MG Capsule 1 capsule Orall y Once a day Active Vitamin D 2000 UNIT Tablet Orally Active Saw [place] 450 MG Capsule Orally Active Multi Vitamin/Minerals Tablet Orally Active Colyte with Flavor Packs 240 GM Solution Reconstituted As directed Orally Over the specified time.; Duration: 1 day(s) 11/16/2013 Active Social History Social History Additional Details Category Social Info Options Details Miscellaneous: Marital status: Occupation: retired Problems Problem Type SNOMED Code ICD Code Onset Dates Problem Status W/U Status Risk Notes Problem Colon cancer screening (525774099) Colon cancer screening (V76.51) Active confirmed Problem Ileitis (98936096) Ileitis (558.9) Active confirmed Plan Of Treatment Future Test Test Name Order Date COLONOSCOPY 11/16/2013 Insurance Providers Payer Name Payer Address Payer Phone Subscriber Number Group Number Insured Name Patient Relationship to Insured Coverage Start Date Coverage End Date MEDICARE OF [place] [address] [place] [id number] MIGNON LOZANO Self - patient is the insured [employer] ATTN CLAIMS [address] [place] [address] [id number] MIGNON LOZANO Self - patient is the insured Medical (General) History Medical History History ICD Code anxiety colon polyps Denies [place],DM,CVA,Lung disease,renal dise ase Surgical History Surgery Date(Month/Year) hernia repair
== END 2025-06-21 14:41 | disposition home or self-care (01) ==
PROVIDERS: PCP Physician Assistant Medical; Visit Provider Internal Medicine Hypertension Specialist
DX: I12.9 Hypertensive chronic kidney disease with stage 1 through stage 4 chronic kidney disease, or unspecified chronic kidney disease (principal); N18.9 Chronic kidney disease, unspecified
CPT/HCPCS: 99204

== ENCOUNTER → 2025-06-21 13:46 | Outpatient (BNVA) | payer MEDICARE, SELFPAY | PROVIDERS: PCP Physician Assistant Medical; Visit Provider Internal Medicine Hypertension Specialist | DX: I12.9 Hypertensive chronic kidney disease with stage 1 through stage 4 chronic kidney disease, or unspecified chronic kidney disease (principal); N18.9 Chronic kidney disease, unspecified; Z87.891 Personal history of nicotine dependence; R19.7 Diarrhea, unspecified | CPT/HCPCS: 99202 ==

== ENCOUNTER → 2025-06-22 14:02 | Outpatient (BNVA) | payer MEDICARE, SELFPAY | PROVIDERS: PCP Physician Assistant Medical; Visit Provider Internal Medicine Hypertension Specialist | DX: Z45.09 Encounter for adjustment and management of other cardiac device (principal) | CPT/HCPCS: 93786; 93788 ==